=== PATIENT | female | born 1995 | race Caucasian/White ===

== ENCOUNTER 2019-09-28 21:49 | Inpatient (IN) ==
[2019-09-28] MEDS ORDERED: OXYTOCIN 30 UNITS/500 ML BAG IV PRN (22:47)
[2019-09-28] MEDS ORDERED: BETAMETH SOD PHOS/ACETATE IA 6 MG/ML IM STA (22:47)
[2019-09-28] MEDS ORDERED: LACTATED RINGER'S 1,000 ML IV PRN (22:47)
[2019-09-28] MEDS ORDERED: BETAMETH SOD PHOS/ACETATE IA 6 MG/ML ONE (22:51)
[2019-09-28] MEDS ORDERED: AZITHROMYCIN 500 MG in DEXTROSE 5% 250 ML IV SCH (23:00)
[2019-09-28] MEDS ORDERED: AMPICILLIN 2,000 MG in SODIUM CHLOR 0.9% AD-VAN 100 ML IV SCH (23:00)
[2019-09-28] MEDS ORDERED: PENICILLIN G POTASSIUM 6 MU in DEXTROSE 5% 250 ML IV STA (23:03)
[2019-09-28] MEDS ORDERED: fentaNYL citrate 100 MCG/2 ML VIAL ONE (23:03)
[2019-09-28] MEDS ORDERED: PENICILLIN G POTASSIUM 3 MU in DEXTROSE 5% 100 ML IV PRN (23:03)
[2019-09-28] MEDS ORDERED: BUPIVACAINE 0.25% 30 ML VIAL ONE (23:04)
[2019-09-28] MEDS ORDERED: fentaNYL 2MCG/ML ROPIV 1.25MG/ML 100 ML BAG EPI ONE (23:04)
[2019-09-28] MEDS ORDERED: ePHEDrine sulfate 50 MG/ML AMP ONE (23:04)
[2019-09-28 23:07] LABS: Hematocrit (blood only) 37.3 % (37-47); Hemoglobin 12.3 g/dL (12.0-16.0); Mean Corpuscular Hemoglobin 24.8 pg (25-34); Mean Corpuscular Volume 75.2 fL (80-100); Mean Platelet Volume 9.9 fL (7.4-10.4); Platelet Count 300 K/uL (130-400); RDW Coefficient of Variation 13.8 % (11.5-14.5); RDW Standard Deviation 37.3 fL (36.4-46.3); Red Blood Count 4.96 M/uL (4.2-5.4); White Blood Count 13.61 K/uL (4.8-10.8)
--- NOTE | 2019-09-28 23:14 | History & Physical Report ---
Date of Service September 28, 2019 Assessment & Plan (1) Active labor: (2) with fetus of unknown gestational age: -Bedside ultrasound done by radiology shows an estimated gestational age of 37 weeks - blood work has been ordered along with a urine drug screen -GC, chlamydia and GBS vaginal cultures have been sent -We will empirically treat with penicillin, 6,000,000 unit loading dose, 3,000,000 units every 4 hours till delivery -Patient desires an epidural, anesthesia will be notified -Social service consult History of Present Illness Chief Complaint: Contractions Primary Care Provider: NO PCP The patient is a 24-year-old 2 para 0 last menstrual period January 2019 who presents to labor and delivery through the emergency room for a labor check. The patient has been having some pain and spotting for the last several days, it has increased in intensity, and she presents to labor and delivery for evalu ation. The patient did know that she was but has had no care nor did she avail herself of any care this . The patient has been taking vitamins. Patient denies any illicit street drug use. The patient states that she wants to keep the but has not shared with her family that she is . Patient History Medical History (Updated 09/28/19 @ 22:55 by Jose Luis Fischer Jr, MD, FACOG) No active medical problems Social History Preferred Language: Nepalese Communication Ability: Effective Mid Level Business Analyst Required: No Beliefs That Will Affect Care: None marital status: Single Current Living Situation: Other Current Living Situation Comment: lives with a friend Feels Safe at Home: Yes Safety Concerns: Feels Safe At This Time Smoking Status: Never smoker Hx Alcohol Use: No Hx Substance Use: No Physical Exam Constitutional: WD/WN, vitals as above Respiratory: Auscultation: lungs clear to auscultation bilaterally Cardiovascular: RRR, no murmur, no edema Extremities: no calf tenderness Gastrointestinal (Abdomen): Gravid, vertex, positive heart tones, estimated weight of 7 pounds, Genitourinary: OB Exam Monitor Tracing: + category II and + normal FHT variability Cervix: 6 cm / 100%/-1 station, bulging membranes Results & Data Vital Signs (Past 12 Hours) Vital Signs Temp Pulse Resp BP 09/28/19 22:09 88 121/80 09/28/19 22:03 98.8 F 18
--- NOTE | 2019-09-28 23:27 | Anesthesiology Consultation ---
Date of Service September 28, 2019 Assessment & Plan Chart Review Chart Review: Acceptable Risk for Surgery Consults Requested none ASA ASA2 Proposed Anesthesia Anesthesia Type: Labor Epidural Risk / Benefits Reviewed With: PT / POA / Parent / Guardian, Accepts Plan and Informed Consent Obtained History Surgery labor epidural Height/Weight Height: 5 ft 7 in Weight: 99.79 kg Allergies Allergy/AdvReac Type Severity Reaction Status Date / Time No Known Allergies Allergy Verified 09/28/19 23:38 Additional Notes: nkda Medications Active Medications Generic Name Dose Route Start Last Admin Trade Name Freq PRN Reason Stop Dose Admin Lactated Ringer's 1,000 mls @ 125 mls/hr 09/28/19 22:47 09/28/19 22:48 Lr IV 09/30/19 22:46 999 mls/hr .Q8H PRN Administration L&D Protocol Protocol Penicillin G Potassium 6 mu/ 262 mls @ 262 mls/hr 09/28/19 23:03 09/28/19 23:24 Dextrose IV 09/29/19 00:02 262 mls/hr NOW STA Administration NPO Date Last Intake of Fluids: 09/28/19 Time Last Intake of Fluids: 16:30 Date Last Intake of Solids: 09/28/19 Time Last Intake of Solids: 16:30 Past Medical History Medical History No active medical problems Exercise / Class Metabolic Activity II 4-5 Yardwork/Stairs/Walk up hill Past Surgical History Surgical History History of elective Past Anesthesia History No Hx of Anesthesia Complications and No Family Hx of Anesthesia Complications History of PONV No Hx of PONV and No Hx of Motion Sickness Social History Smoking Status: Never smoker Hx Alcohol Use: No Hx Substance Use: No Physical Exam Vital Signs Last Vital Signs Temp 37.1 C 09/28/19 22:03 Pulse 88 09/28/19 22:09 Resp 18 09/28/19 22:03 BP 121/80 09/28/19 22:09 ENMT Mouth: no TMJ abnormality Thyromental Distance: > or= 3.5 Finger Breadths Mallampati Class: II Neck normal visual inspection and trachea midline; neck extension not limited Respiratory normal respiratory effort Auscultation: lungs clear to auscultation bilaterally Cardiovascular Rate/Rhythm: regular rate and regular rhythm Heart Sounds: no murmur Musculoskeletal Spine: normal cervical ROM Extremities: full ROM of extremities Neurologic moves all extremities Psychiatric Orientation: alert and oriented x 3 Testing Laboratory Results 09/28/19 22:46
[2019-09-28 23:48] LABS: Rubella IgG Antibody Immune (Immune)
[2019-09-28 23:49] LABS: Hepatitis B Surface Antigen Neg (Neg)
[2019-09-28] MEDS ORDERED: ONDANSETRON INJ 2 MG/ML 2 ML VIAL IV PRN (23:56)
[2019-09-28] MEDS ORDERED: NALBUPHINE HCL INJ 10 MG/ML AMP IV PRN (23:56)
[2019-09-28] MEDS ORDERED: fentaNYL 2MCG/ML ROPIV 1.25MG/ML 100 ML BAG EPI PRN (23:56)
[2019-09-28] MEDS ORDERED: ePHEDrine sulfate 50 MG/ML AMP IV PRN (23:56)
[2019-09-28] MEDS ORDERED: DiphenhydrAMINE HCL 50 MG/ML VIAL IV PRN (23:56)
[2019-09-28] MEDS ORDERED: NALOXONE HCL 1 MG in SODIUM CHLORIDE 0.9% 1000ML 1,000 ML IV PRN (23:56)
[2019-09-28] MEDS ORDERED: NALOXONE HCL 0.4 MG/1 ML VIAL/CARP IV PRN (23:56)
[2019-09-29 00:17] LABS: Hepatitis C IgG 13Yrs+Old_Rflx Neg (Neg)
--- NOTE | 2019-09-29 00:37 | Delivery Summary ---
Vaginal Delivery Summary Date of Service September 29, 2019 Vaginal Delivery Summary Findings: Viable female infant with Apgars of 8 and 9 baby delivered spontaneously over a midline second-degree laceration. Cord blood samples and cord gas samples obtained. Placenta delivered spontaneously and sent for pathological evaluation. Laceration repaired with 4-0 Vicryl in routine fashion. Estimated blood loss 300 cc. Labor Course: The patient is a 24-year-old 2 para 0 last menstrual period January 2019 who presents to labor and delivery through the emergency room for a labor check. The patient has been having some pain and spotting for the last several days, it has increased in intensity, and she presents to labor and delivery for evaluation. The patient did know that she was but has had no care nor did she avail herself of any care this . The patient has been taking vitamins. Patient denies any illicit street drug use. The patient states that she wants to keep the but has not shared with her family that she is . Upon admission the patient was 6 cm dilated 100% effaced and -1 station. Department of radiology did a quick bedside ultrasound which showed a viable intrauterine in a vertex presentation with measurements consistent with 37 to 38 weeks gestational age. Vaginal group B strep, chlamydia, and GC cultures are were obtained. Empiric penicillin 6,000,000 unit loading dose given. Urine drug screen sent. Anesthesia was consulted and an epidural was placed. Epidural was nonfunctioning. After completion of the epidural the patient had the uncontrollable urge to push. Artificial rupture of membranes for clear fluid. Patient began her second stage. She pushed for approximately 15 minutes delivering the viable female . Cord was clamped and cut. Cord gases and cord blood samples were obtained. Placenta was delivered spontaneously and sent for pathological evaluation. Inspection of the perineum showed a midline second-degree laceration. This was repaired with 4-0 Vicryl. Estimated blood loss was 300 cc. Sponge and needle count was correct.
[2019-09-29 00:52] LABS: CO2 Cord Arterial Blood 50 mmHg (39.1-73.5); HCO3 Cord Arterial Blood 21 mmol/L (19.7-28.5); PO2 Cord Arterial Blood 20.4 % (4.1-31.7); pH Cord Arterial Blood 7.24 (7.1-7.38)
[2019-09-29 00:58] LABS: Cord Venous Blood HCO3 20 mmol/L (18.4-26.8); Cord Venous Blood PCO2 29 mmHg (30.4-57.2); Cord Venous Blood PO2 34 mmHg (14.1-43.3); Cord Venous Blood pH 7.44 (7.20-7.44)
[2019-09-29 01:00] LABS: Oxygen Sat Cord Arterial Blood < 60.0 % (<60)
[2019-09-29] MEDS ORDERED: ACETAMINOPHEN 325 MG TAB PO PRN (01:18)
[2019-09-29] MEDS ORDERED: SUPERCREAM 0.870% 15 GM JAR EXT PRN (01:18)
[2019-09-29] MEDS ORDERED: DIPHTHERIA/TETANUS/PERTUSSIS 0.5 ML SYR/VIAL IM ONE (01:18)
[2019-09-29] MEDS ORDERED: BENZOCAINE 20% AER SPR 82.5 GM CAN EXT PRN (01:18)
[2019-09-29] MEDS ORDERED: ACETAMINOPHEN W/CODEINE #3 1 TAB PO PRN (01:18)
[2019-09-29] MEDS ORDERED: HYDROCORTISONE ACETATE 25 MG SUPP PR PRN (01:18)
[2019-09-29] MEDS ORDERED: OXYTOCIN 30 UNITS/500 ML BAG IV PRN (01:18)
--- NOTE | 2019-09-29 07:25 | Ultrasound Report ---
US OB >= 14 weeks fetus CLINICAL HISTORY: labor, unknown gestational age COMPARISON STUDY: None. FINDINGS: There is a single viable intrauterine gestation with a heart rate of 154 bpm. The fet us is in a cephalic presentation. The placenta was not visualized. The cervix was not evaluated. Sugg estive of oligohydramnios. The age is demonstrated to be 37 weeks and 1 day based on the bipari etal diameter, head circumference, and femur length. IMPRESSION: 1. Single viable 37 week and 1 day intrauterine gestation. 2. Suggestive of oligohydramnios on these limited images. 3. heart rate was 154 bpm. ACT 112: Negative or not required by law. Electronically signed by: Jay Nash M.D. 09/29/2019 7:23 AM
[2019-09-29] MEDS: DOCUSATE SODIUM 100 MG CAP PO SCH ×2 (08:52→19:38)
[2019-09-29] MEDS: PRENATAL VITAMIN 1 TAB PO SCH (08:52)
[2019-09-29] MEDS: IBUPROFEN 600 MG TAB PO PRN (09:36)
--- NOTE | 2019-09-29 11:47 | Anesthesia Procedure Note ---
Date of Service September 29, 2019 Anesthesia Post Epidural Note Vital Signs Vital Signs: Temp Pulse Resp BP Pulse Ox 37.1 C 106 H 16 122/69 97 09/29/19 11:27 09/29/19 11:27 09/29/19 11:27 09/29/19 11:27 09/29/19 11:27 Pain Intensity Bilateral Abdomen: Pain Intensity: 0 Notes Mental Status: alert / awake / arousable and participated in evaluation Patient Amnestic to Procedure: No Nausea / Vomiting: adequately controlled Pain: adequately controlled Airway Patency, RR, SpO2: stable & adequate BP & HR: stable & adequate Hydration State: stable & adequate Neuraxial Anesthesia: was administered and sensory block resolved Anesthetic Complications: no major complications apparent and Pt Satisfied with anesthetic care Epidural: Removed without complications and With tip intact
[2019-09-30 01:30] LABS: Amphetamines+Metham, Urine Neg (Neg); Barbiturates, Urine Neg (Neg); Benzodiazepine, Urine Neg (Neg); Cocaine, Urine Neg (Neg); MDMA (Ecstacy), Urine Neg (Neg); Methadone, Urine Neg (Neg); Opiate, Urine Neg (Neg); Phencyclidine, Urine Neg (Neg)
--- NOTE | 2019-09-30 06:46 | Obstetrical Progress Note ---
Date of Service September 30, 2019 Assessment & Plan (1) state: Patient is really only day #1 with no care will monitor today possible discharge tomorrow Subjective Ambulation: ambulating normally Voiding: no voiding problems Passing Gas:: Yes Diet Tolerance:: regular diet Lochia:: Small Current Pain Level(1-10): 0 Physical Exam Gastrointestinal (Abdomen) normal bowel sounds, soft, nontender, no hepatosplenomegaly ext neg Results & Data Vital Signs (Past 12 Hours) Vital Signs Temp Pulse Resp BP Pulse Ox 09/29/19 23:36 98.8 F 83 18 125/80 09/29/19 19:45 98.8 F 92 H 16 106/71 98
[2019-09-30] MEDS: IBUPROFEN 600 MG TAB PO PRN (09:02)
[2019-09-30] MEDS: DOCUSATE SODIUM 100 MG CAP PO SCH ×2 (09:02→20:40)
[2019-09-30] MEDS: PRENATAL VITAMIN 1 TAB PO SCH (09:02)
[2019-09-30 11:35] LABS: Chlamydia Trach RNA NOT DETECTED (NOT DETECTED); GC (Neis gonorrhoeae) RNA NOT DETECTED (NOT DETECTED)
[2019-09-30] MEDS ORDERED: bisacodyL 5 MG TABEC PO SCH (20:00)
[2019-10-01 06:23] LABS: Hematocrit (blood only) 33.4 % (37-47); Hemoglobin 10.5 g/dL (12.0-16.0)
--- NOTE | 2019-10-01 07:21 | Obstetrical Progress Note ---
Date of Service October 01, 2019 Assessment & Plan (1) state: stable for d/c home, reviewed intructions, plan 6wk pp check. breast feeding well. rh neg,, she needs rhogam and tdap before d/c. rubella immune. Day #:: 2 Subjective Ambulation: ambulating normally Voiding: no voiding problems Diet Tolerance:: regular diet Lochia:: Small Feeding Type:: breast feeding denies pain issues. has good family support and did see social director. Physical Exam Constitutional WD/WN, vitals as above Respiratory normal respiratory effort, lungs clear to auscultation Cardiovascular Rate/Rhythm: regular rate and regular rhythm Gastrointestinal (Abdomen) Inspection/Auscultation: abdomen normal to inspection Percussion/Palpation: abdomen soft; abdomen nontender fundus firm 1-2 cm below umbilicus Musculoskeletal nt calves no edema Neurologic grossly normal Psychiatric A+Ox3, euthymic affect Results & Data Vital Signs (Past 12 Hours) Vital Signs Temp Pulse Resp BP Pulse Ox 09/30/19 23:05 98.8 F 81 16 131/74 96
[2019-10-01] MEDS: DOCUSATE SODIUM 100 MG CAP PO SCH (08:30)
[2019-10-01] MEDS: PRENATAL VITAMIN 1 TAB PO SCH (08:30)
== END 2019-10-01 15:00 | disposition home or self-care (01) | DRG 806 ==
LOC: OPB 21:49 → 4S1 21:53 → 4S2 09-29 03:14